=== PATIENT | male | born 1940 | race Two or more races ===

== ENCOUNTER 2022-07-11 19:30 | Emergency (ER) | payer OTHER ==
[2022-07-11 19:45] VITALS: BMI 25.8
[2022-07-11] MEDS ORDERED: LACTATED RINGERS SOLUTION 1000 ML INFUS.BAG IV ONE (20:07)
[2022-07-11] MEDS ORDERED: ACETAMINOPHEN 1000 MG/100 ML BAG IVPB ONE (20:07)
[2022-07-11] MEDS ORDERED: ONDANSETRON 4 MG/2 ML VIAL IVPUSH ONE (20:08)
[2022-07-11] MEDS ORDERED: ACETAMINOPHEN INJECTION 100 ML IVPB ONE (20:13)
[2022-07-11] MEDS ORDERED: ONDANSETRON 4 MG/2 ML VIAL ONE (20:13)
[2022-07-11 20:27] LABS: BASO % 0.6 % (0-2.0); EOS % 0.4 % (0-4.5); HEMATOCRIT 42.2 % (35.4-49); LYMPH % 9.9 % (8-40); MCH 31.1 pg (25.7-33.7); MCHC 33.2 g/dl (32.0-35.9); MEAN CELL VOLUME 93.8 fl (80-96); MEAN PLT VOLUME 9.5 fl (7.5-11.1); MONO % 1.2 % (3.8-10.2); NEUT % 87.9 % (42.8-82.8); PLATELET COUNT 239 10^3/uL (134-434); RDW 13.6 % (11.9-15.9); WHITE BLOOD COUNT 11.8 K/mm3 (4.0-10.0)
[2022-07-11 20:34] LABS: INR 1.12 (0.83-1.09); PROTHROMBIN TIME (PATIENT) 12.9 SEC (9.7-13.0)
[2022-07-11 20:36] LABS: ACTIVATED PTT 27.2 SECONDS (25.2-36.5)
[2022-07-11] MEDS ORDERED: PANTOPRAZOLE SODIUM 40 MG VIAL IVPUSH ONE (20:40)
[2022-07-11] MEDS ORDERED: FAMOTIDINE 20 MG/50 ML IVPB 20 MG/50 ML MG IVPB ONE ×2 (20:40→20:43)
[2022-07-11] MEDS ORDERED: PANTOPRAZOLE SODIUM 40 MG VIAL ONE (20:43)
[2022-07-11] MEDS ORDERED: morphine CARPU-JECT 2 MG/1 ML DISP.SYRIN IVPUSH ONE (20:47)
[2022-07-11 20:48] LABS: CALCIUM 9.3 mg/dL (8.5-10.1)
[2022-07-11] MEDS ORDERED: morphine SULFATE 4 MG/ML VIAL ONE (20:48)
[2022-07-11 20:51] LABS: CREATININE 1.2 mg/dL (0.55-1.3)
[2022-07-11 20:53] LABS: BILIRUBIN,TOTAL 1.4 mg/dL (0.2-1); TOT PROT 7.1 g/dl (6.4-8.2)
[2022-07-11 20:56] LABS: LACTIC ACID 2.6 mmol/L (0.4-2.0)
[2022-07-11] MEDS ORDERED: CEFTRIAXONE 2,000 MG in DEXTROSE 5%-WATER - 50 ML IVPB ONE (23:16)
[2022-07-11] MEDS ORDERED: CEFTRIAXONE 2 GM/100 ML BAG IVPB ONE (23:28)
[2022-07-11 23:42] VITALS: BP 137/65; PULSE 85; RESP 14; TEMP 98
[2022-07-12] MEDS ORDERED: SODIUM CHLORIDE 0.9% 500 ML INFUS.BAG IV ONE (01:20)
[2022-07-12 01:25] LABS: BILIRUBIN,DIRECT 0.8 mg/dL (0.0-0.2)
[2022-07-12] MEDS ORDERED: IBUPROFEN 800 MG/8 ML IJ IVPB ONE ×2 (01:35→01:38)
== END 2022-07-12 02:20 | disposition short-term general hospital (02) ==
LOC: JER 19:30
PROC: 3E033GC Introduction of Other Therapeutic Substance into Peripheral Vein, Percutaneous Approach (ICD-10-PCS; principal; 2022-07-11)
DX: K83.09 Other cholangitis (principal)
CPT/HCPCS: 0241U-QW; 36415; 71045-TC-FY; 74177-TC; 76705-TC; 80053; 82248; 83605; 83690; 84484; 85025; 85610; 85730; 86850; 86900; 86901; 93005; 93010; 99291; Q9967